=== PATIENT | male | born 1975 | race Hispanic/Latino ===

== ENCOUNTER 2018-07-18 00:09 | Emergency (ER) | payer SELFPAY ==
[2018-07-18 00:20] VITALS: RESP 18; TEMP 98.3; O2SAT 99
[2018-07-18 01:06] VITALS: BP 147/97; PULSE 61
--- NOTE | 2018-07-18 01:42 | ED PDOC ---
HPI: General Adult Time Seen by Provider: 07/18/18 00:37 Chief Complaint (Nursing): Medical Clearance History Per: Patient History/Exam Limitations: no limitations Current Symptoms Are (Timing): Gone Now Additional Complaint(s): Patient states that he has a history of HTN and was told last time that he went to correction that his pressure was too high. Has not taken medications in 2 years. Denies chest pain, headache, shortness of breath, of any other symptoms. Denies psychiatric complaint, no suicidal or homicidal ideation. Admits to heroin use earlier today. Past Medical History Reviewed: Historical Data, Nursing Documentation, Vital Signs Vital Signs: Last Vital Signs Temp 98.3 F 07/18/18 00:18 Pulse 61 07/18/18 01:05 Resp 18 07/18/18 00:18 BP 147/97 H 07/18/18 01:05 Pulse Ox 99 07/18/18 00:18 - Medical History PMH: Asthma, Back Problems, CAD, Depression, Diabetes, HTN Denies: Hepatitis, HIV, Chronic Kidney Disease, Seizures, Sexually Transmitted Disease - Surgical History Surgical History: Coronary Stent (2011) - Family History Family History: States: Unknown Family Hx - Immunization History Hx Tetanus Toxoid Vaccination: No Hx Influenza Vaccination: No Hx Pneumococcal Vaccination: No - Home Medications Home Medications: Ambulatory Orders Medication Instructions Recorded Lisinopril [Zestril] 10 mg PO DAILY #30 tablet 07/18/18 - Allergies Allergies/Adverse Reactions: Allergies Allergy/AdvReac Type Severity Reaction Status Date / Time No Known Allergies Allergy Verified 07/18/18 00:18 Review of Systems ROS Statement: Except As Marked, All Systems Reviewed And Found Negative Physical Exam - Reviewed Nursing Documentation Reviewed: Yes Vital Signs Reviewed: Yes - Physical Exam Appears: Positive for: Well, Non-toxic, No Acute Distress Head Exam: Positive for: ATRAUMATIC, NORMAL INSPECTION, NORMOCEPHALIC Skin: Positive for: Normal Color, Warm, DRY Eye Exam: Positive for: EOMI, Normal appearance, PERRL ENT: Positive for: Normal ENT Inspection Neck: Positive for: Normal, Painless ROM Cardiovascular/Chest: Positive for: Regular Rate, Rhythm Respiratory: Positive for: CNT, Normal Breath Sounds Gastrointestinal/Abdominal: Positive for: Normal Exam, Soft Back: Positive for: Normal Inspection Extremity: Positive for: Normal ROM Neurologic/Psych: Positive for: Alert, texture artist II-XII, Oriented. Negative for: Motor/Sensory Deficits - ECG O2 Sat by Pulse Oximetry: 99 Pulse Ox Interpretation: Normal Medical Decision Making Medical Decision Making: Patient has no acute medical or psychiatric emergency at this time. BP normalizing. Will prescribe lisinopril, which patient used to take. Will d/c into police custody. Disposition - Clinical Impression Clinical Impression: HTN (hypertension) - Disposition Referrals: [facility] [Outside] Disposition: Discharged/Transfer to Law Enforcement Disposition Time: 01:00 Condition: STABLE Additional Instructions: Patient is medically and psychiatrically cleared for incarceration. Prescriptions: Lisinopril [Zestril] 10 mg PO DAILY #30 tablet Instructions: High Blood Pressure in Adults, General (DC) Forms: [employer] ([place])
== END 2018-07-18 01:10 ==
LOC: H.ER 00:09
DX: I10 Essential (primary) hypertension (principal); E11.9 Type 2 diabetes mellitus without complications; Z95.5 Presence of coronary angioplasty implant and graft; Z79.899 Other long term (current) drug therapy